=== PATIENT | male | born 1930 | race Caucasian/White ===

== ENCOUNTER 2017-05-27 08:16 | Emergency (ER) | payer MEDICARE, BC ==
[2017-05-27 10:19] VITALS: BP 122/61
--- NOTE | 2017-05-27 10:44 | UC ---
Truncal Trauma HPI - HPI Summary HPI Summary: hellen tripped and fell on his left side, left arm went into rib cage, some swelling noted, hard to take deep breath, large skin tear on left elbow. - History Of Current Complaint Chief Complaint: UCUpperExtremity Stated Complaint: RIB PAIN-FALL 05/26 Time Seen by Provider: 05/27/17 10:18 Hx Obtained From: Patient Onset/Duration: Sudden Onset, Lasting Days Onset Of Pain: Post Accident Severity Initially: Moderate Severity Currently: Moderate Mechanism Of Injury: Direct Blow, Fall From A Standing Position Aggravating Factor(s): Movement, Deep Breathing, Cough Alleviating factor(s): Nothing - Allergies/Home Medications Allergies/Adverse Reactions: Allergies Allergy/AdvReac Type Severity Reaction Status Date / Time Codeine Allergy Mild Nausea Verified 05/27/17 08:28 Home Medications: Home Medications Furosemide TAB* [Lasix TAB*] 20 mg PO DAILY 05/27/17 [History Confirmed 05/27/17 ] PMH/Surg Hx/FS Hx/Imm Hx Previously Healthy: Yes - Surgical History Surgical History: Yes Surgery Procedure, Year, and Place: APPENDECTOMY, HIATAL HERNIA REPAIR - Family History Known Family History: Negative: Cardiac Disease, Hypertension - Social History Alcohol Use: Daily Alcohol Amount: glass of wine Substance Use Type: None Smoking Status (MU): Former Smoker When Did the Patient Quit Smoking/Using Tobacco: 45 years Review of Systems Constitutional: Negative Skin: Other - skin tear Eyes: Negative ENT: Negative Respiratory: Shortness Of Breath, Cough Cardiovascular: Negative Gastrointestinal: Negative Genitourinary: Negative Motor: Negative Neurovascular: Negative Musculoskeletal: Arthralgia, Decreased ROM, Edema, Myalgia Neurological: Negative Psychological: Negative All Other Systems Reviewed And Are Negative: Yes Physical Exam Triage Information Reviewed: Yes Appearance: Well-Appearing, Pain Distress, Obese Vital Signs: Initial Vital Signs Temp 98.1 F 05/27/17 08:23 Pulse 70 05/27/17 08:23 Resp 22 05/27/17 08:23 BP 142/77 05/27/17 08:23 Pulse Ox 100 05/27/17 08:23 Vital Signs Reviewed: Yes Eye Exam: Normal Eyes: Positive: Other: - no vision changes ENT Exam: Normal ENT: Positive: Hearing grossly normal, Pharynx normal, TMs normal Dental Exam: Normal Neck exam: Normal Neck: Positive: Supple, Nontender, No Lymphadenopathy Respiratory: Positive: Lungs clear, No respiratory distress, No accessory muscle use, Other: - tender on lower left rib cage Cardiovascular Exam: Normal Cardiovascular: Positive: RRR, No Murmur, Pulses Normal Abdominal Exam: Normal Abdomen Description: Positive: Nontender, No Organomegaly, Soft Bowel Sounds: Positive: Present Musculoskeletal Exam: Normal Neurological Exam: Normal Psychological Exam: Normal Skin Exam: Normal Truncal Trauma Course/Dx - Course Course Of Treatment: hx obtained, exam performed ,meds reviewed, xray obtained, skin tear cleansed and dressed - Differential Dx/Diagnosis Differential Diagnosis/HQI/PQRI: Abdominal Wall Contusion, Abdominal Wall Abrasion, Cardiac Contusion, Chest Wall Abrasion, Pulmonary Contusion, Rib Fracture Provider Diagnoses: left 10th rib fracture. let arm skin tear Discharge - Discharge Plan Condition: Stable Disposition: HOME Patient Education Materials: Rib Fracture (ED) Additional Instructions: 1. you do have a fracture of the left last rib. 2. Rest 3. Tylenol for pain 4. Please use the [employer] spirometer 5x a day for the next week to help keep the lungs open and prevent pneumonia
--- NOTE | 2017-05-27 11:09 | RAD ---
INDICATION: Left rib injury. TECHNIQUE: The views of the left ribs were obtained. FINDINGS: There is a minimally displaced fracture of the left lateral 10th rib. No other fractures are seen. IMPRESSION: MINIMALLY DISPLACED FRACTURE OF THE LEFT LATERAL 10TH RIB.
--- NOTE | 2017-05-27 11:12 | RAD ---
INDICATION: Trauma left rib pain. COMPARISON: Comparison is made with a prior CT of the chest from September 28, 2016. TECHNIQUE: Dual-energy PA and lateral views of the chest were obtained. FINDINGS: The heart is within normal limits in size. Mediastinal and hilar contours appear within normal limits. The lungs are underinflated. There is mild atelectasis at the left lung base. There is flattening of the diaphragms suggestive of chronic obstructive pulmonary disease. No pleural effusion or pneumothorax is seen. IMPRESSION: NO EVIDENCE FOR PNEUMOTHORAX.
== END 2017-05-27 11:27 | disposition home or self-care (01) ==
LOC: UCCORT 08:16
DX: S22.32XA Fracture of one rib, left side, initial encounter for closed fracture (principal); S51.012A Laceration without foreign body of left elbow, initial encounter; W01.0XXA Fall on same level from slipping, tripping and stumbling without subsequent striking against object, initial encounter; Y93.9 Activity, unspecified; Y92.9 Unspecified place or not applicable; E66.9 Obesity, unspecified; Z88.5 Allergy status to narcotic agent; Z87.891 Personal history of nicotine dependence
CPT/HCPCS: 71020; 99212; G0463